=== PATIENT | female | born 1970 | race Caucasian/White ===

== ENCOUNTER 2019-01-30 17:23 | Emergency (ER) | payer OTHER ==
[~2019-01-30] VITALS: Ht 162.6 cm; Wt 82.9 kg
[~2019-01-30 17:23] MED LIST: ESTR1PAT79 TD; ESTR2TAB PO; METR500T PO; None per pt.; OXYC1TAB7 PO; OXYC5CAP2 PO
[2019-01-30 17:27] VITALS: BP 147/96
[2019-01-30] MEDS ORDERED: OXYcodone/APAP 5/325MG TABLET ONE (17:44)
--- NOTE | 2019-01-30 17:50 | NUR ---
patient to [facility]
[2019-01-30] MEDS ORDERED: OXYcodone/APAP 5/325MG TABLET PO ONE (18:00)
== END 2019-01-30 18:48 | disposition home or self-care (01) ==
LOC: ED 18:36
DX: S63.502A Unspecified sprain of left wrist, initial encounter (principal); W01.10XA Fall on same level from slipping, tripping and stumbling with subsequent striking against unspecified object, initial encounter; Y93.89 Activity, other specified; Y92.009 Unspecified place in unspecified non-institutional (private) residence as the place of occurrence of the external cause; Y99.8 Other external cause status
CPT/HCPCS: 29125; 99283